=== PATIENT | male | born 1990 | race Caucasian/White ===

== ENCOUNTER 2017-04-04 10:39 | Emergency (ER) | payer OTHER ==
[2017-04-04 10:47] VITALS: BP 156/86
[2017-04-04] MEDS ORDERED: Lidocaine 2% PF * 5 ML VIAL INJ ONE ×2 (10:56)
[2017-04-04] MEDS ORDERED: Gelfoam 12-7 ADSORBABL SPONGE* 1 EA SPONGE ONE (11:19)
[2017-04-04] MEDS ORDERED: Gelfoam 12-7 ADSORBABL SPONGE* 1 EA SPONGE TOPICAL ONE (11:41)
--- NOTE | 2017-04-04 11:50 | UC ---
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 TETANUS 2YRS AGO. - History Of Current Complaint Chief Complaint: UCLaceration Stated Complaint: LEFT HAND LACERATION-WC Time Seen by Provider: 04/04/17 10:49 Hx Obtained From: Patient, Other: - CO-WORKER Laceration Location: Finger - LEFT 3RD AND 4TH FINGERS Mechanism Of Injury: Sharp Trauma Onset/Duration: Sudden Onset, Lasting Minutes Severity: Moderate Aggravating Factors: Movement Related History: Occupational Injury - Allergies/Home Medications Allergies/Adverse Reactions: Allergies Allergy/AdvReac Type Severity Reaction Status Date / Time No Known Allergies Allergy Verified 04/04/17 10:43 Home Medications: Home Medications Ibuprofen TAB* [Advil TAB*] 800 mg PO Q8H PRN 04/04/17 [History Confirmed ] PMH/Surg Hx/FS Hx/Imm Hx Previously Healthy: Yes - Surgical History Surgical History: Yes Surgery Procedure, Year, and Place: Right Ankle Fracture, 11/2016[facility] - Family History Known Family History: Negative: Blood Disorder - Social History Occupation: Employed Full-time Lives: With Family Alcohol Use: Occasionally Substance Use Type: None Smoking Status (MU): Heavy Every Day Tobacco Smoker Type: Smokeless Tobacco Amount Used/How Often: 1 can daily Length of Time of Smoking/Using Tobacco: Since Age 14 - Immunization History Most Recent Tetanus Shot: 08/2014 (Tdap) Review of Systems Constitutional: Negative Skin: Other - LACERATION LEFT 3RD AND 4TH FINGERS Eyes: Negative ENT: Negative Respiratory: Negative Cardiovascular: Negative Gastrointestinal: Negative Genitourinary: Negative Motor: Negative Neurovascular: Negative Musculoskeletal: Myalgia Neurological: Negative Psychological: Negative Is Patient Immunocompromised?: No All Other Systems Reviewed And Are Negative: Yes Physical Exam Triage Information Reviewed: Yes Appearance: Well-Appearing, No Pain Distress, Well-Nourished Vital Signs: Initial Vital Signs Temp 97 F 04/04/17 10:42 Pulse 100 04/04/17 10:42 Resp 18 04/04/17 10:42 BP 156/86 04/04/17 10:42 Vital Signs Reviewed: Yes Eye Exam: Normal ENT Exam: Normal Dental Exam: Normal Neck exam: Normal Neck: Positive: Supple, Nontender Respiratory Exam: Normal Respiratory: Positive: Chest non-tender, Lungs clear, Normal breath sounds, No respiratory distress, No accessory muscle use Cardiovascular Exam: Normal Cardiovascular: Positive: RRR, No Murmur, Pulses Normal Abdominal Exam: Normal Musculoskeletal Exam: Normal Musculoskeletal: Positive: Strength Intact, ROM Intact Neurological Exam: Normal Psychological Exam: Normal Skin: Positive: Other - LACERATION LEFT DISTAL THIRD FINGER PALMAR SURFACE 2CM X 4mm X 4mm WITH PROXIMAL ADJACENT SKIN AVULSION MEASURING 2CM LONG BY 0.5 CM WIDE BY 0.3CM DEEP; LACERATION LEFT DISTAL FOURTH FINGER PALMAR [id number] X 2mm X 2mm Laceration Repair - Laceration Repair 1 Description: Irregular Laceration Size After Repair: Length (cm) - 2, Width (mm) - 4, Depth (mm) - 4 Type Injection: Digital Anesthesia Used: 2.0% Lido Irrigation With Pressure Irrigation Device: Yes Closure Material: Sutures - 5 X 4-0 Suture Of: Skin, SQ Suture Type: Prolene 2 Description: Linear - LEFT 4TH FINGER Laceration Size After Repair: Length (cm) - 1, Width (mm) - 2, Depth (mm) - 2 Closure Material: Skin Adhesive, SteriStrips Laceration Course/Dx - Differential Dx - Laceration/Wound Differental Diagnoses: Cellulitis, Laceration, Tendon Laceration Provider Diagnoses: LACERATION LEFT DISTAL THIRD FINGER PALMAR SURFACE 2CM X 4mm X 4mm WITH PROXIMAL ADJACENT SKIN AVULSION MEASURING 2CM LONG BY 0.5 CM WIDE BY 0.3CM DEEP; LACERATION LEFT DISTAL FOURTH FINGER PALMAR [id number] X 2mm X 2mm Discharge - Discharge Plan Condition: Stable Disposition: HOME Patient Education Materials: Finger Laceration (ED), Skin Adhesive Care (ED), Steristrips (ED) Referrals: [facility] [place] [facility] [Outside] Madonna Schultz MD [Medical Doctor] - If Needed Additional Instructions: PLEASE HAVE SUTURES REMOVED IN TEN DAYS Images Hands: 1 - LACERATION LEFT DISTAL THIRD FINGER PALMAR SURFACE 2CM X 4mm X 4mm WITH PROXIMAL ADJACENT SKIN AVULSION MEASURING 2CM LONG BY 0.5 CM WIDE BY 0.3CM DEEP; 2 - LACERATION LEFT DISTAL FOURTH FINGER PALMAR [id number] X 2mm X 2mm
== END 2017-04-04 11:47 | disposition home or self-care (01) ==
LOC: UCCORT 10:39
DX: S61.213A Laceration without foreign body of left middle finger without damage to nail, initial encounter (principal); F17.210 Nicotine dependence, cigarettes, uncomplicated; W45.8XXA Other foreign body or object entering through skin, initial encounter; Y92.89 Other specified places as the place of occurrence of the external cause; Y99.0 Civilian activity done for income or pay
CPT/HCPCS: 12001; 12041; 99201; A9270-GY; G0463